=== PATIENT | male | born 1990 | race Caucasian/White ===

== ENCOUNTER 2021-01-02 13:44 | Emergency (ER) | payer MEDICAID ==
[2021-01-02 14:10] LABS: BASOPHILS # (AUTO) 0.1 10^3/uL (0.0-0.1); BASOPHILS % (AUTO) 0.6 %; EOSINOPHILS # (AUTO) 0.1 10^3/uL (0.0-0.7); HCT - HEMATOCRIT 48.8 % (42.0-52.0); HGB - HEMOGLOBIN 16.3 g/dL (14.0-18.0); LYMPHOCYTES # (AUTO) 2.4 10^3/uL (1.5-3.5); LYMPHOCYTES % (AUTO) 31.6 %; MEAN CORPUSCULAR HEMOGLOBIN 30.1 pg (27.0-31.0); MEAN CORPUSCULAR HGB CONC 33.4 g/dL (32.0-36.0); MEAN CORPUSCULAR VOLUME 90.2 fL (80.0-94.0); MEAN PLATELET VOLUME 10.8 fL (7.4-11.4); MONOCYTES # (AUTO) 0.6 10^3/uL (0.0-1.0); MONOCYTES % (AUTO) 7.1 %; NEUTROPHILS # (AUTO) 4.6 10^3/uL (1.5-6.6); NEUTROPHILS % (AUTO) 59.6 %; PLT - PLATELET COUNT 267 10^3/uL (130-450); RED BLOOD COUNT 5.41 10^6/uL (4.70-6.10); RED CELL DISTRIBUTION WIDTH 12.5 % (12.0-15.0); WHITE BLOOD COUNT 7.7 x10^3/uL (4.8-10.8)
[2021-01-02 14:23] LABS: ALBUMIN 4.8 g/dL (3.2-5.5); ALBUMIN/GLOBULIN RATIO 1.4 (1.0-2.2); BILIRUBIN,TOTAL 0.8 mg/dL (0.2-1.0); CREATININE 1.1 mg/dL (0.6-1.2); POTASSIUM 3.5 mmol/L (3.5-5.0); TOTAL PROTEIN 8.2 g/dL (6.7-8.2)
[2021-01-02] MEDS ORDERED: ONDANSETRON 4 MG/2 ML VIAL IVP STA (14:31)
[2021-01-02] MEDS ORDERED: SODIUM CHLORIDE 0.9% 1,000 ML IV STA (14:31)
[2021-01-02] MEDS ORDERED: FAMOTIDINE 20 MG/2 ML VIAL IVP STA (14:32)
[2021-01-02 14:48] LABS: BILIRUBIN,URINE NEGATIVE (NEGATIVE); GLUCOSE, URINE (UA) NEGATIVE (NEGATIVE); KETONES,URINE (UA) TRACE mg/dL (NEGATIVE); LEUKOCYTE ESTERASE, URINE NEGATIVE (NEGATIVE); NITRITE,URINE NEGATIVE (NEGATIVE); OCCULT BLOOD,URINE NEGATIVE (NEGATIVE); PROTEIN,URINE NEGATIVE (NEGATIVE); UROBILINOGEN,URINE 0.2 (NORMAL) E.U./dL (NORMAL)
[2021-01-02 14:51] LABS: CLARITY,URINE CLEAR (CLEAR)
--- NOTE | 2021-01-02 16:54 | ED Physician Documentation ---
History of Present Illness - Stated complaint Stated Complaint: N/V - Chief complaint Chief Complaint: Abd Pain - History obtained from History obtained from: Patient - Additonal information Additional information: 30-year-old man with past medical history of gastroesophageal reflux disease on Prevacid presents with nausea, vomiting, and epigastric pain starting today with bloody streaks. Patient states that his pain started gradually, burning quality, radiated upward from the epigastrium and was associated with acid taste in his throat. Intermittently streaked with blood, dark streaks, and foamy white material. small volume vomitus. He denies fevers, diarrhea, back pain. Primary doctor is Salvador Cunningham in [place]. Review of Systems Ten Systems: 10 systems reviewed and negative Constitutional: denies: Fever GI: reports: Abdominal Pain, Nausea, Vomiting. denies: Diarrhea PD PAST MEDICAL HISTORY - Present Medications Home Medications: Ambulatory Orders Medication Instructions Recorded Confirmed Lansoprazole [Prevacid] 30 mg PO DAILY 01/02/21 01/02/21 Loratadine [Claritin] 10 mg PO DAILY 01/02/21 01/02/21 Ondansetron Odt [Zofran Odt] 4 mg TL Q6H PRN #10 tablet 01/02/21 - Allergies Allergies/Adverse Reactions: Allergies Allergy/AdvReac Type Severity Reaction Status Date / Time methylphenidate AdvReac Anxiety Verified 01/02/21 13:50 [From Ritalin] PD ED PE NORMAL - Vitals Vital signs reviewed: Yes - General General: Alert and oriented X 3, No acute distress, Well developed/nourished - HEENT HEENT: Atraumatic, PERRL, EOMI - Neck Neck: Supple, no meningeal sign - Cardiac Cardiac: RRR - Respiratory Respiratory: No respiratory distress, Clear bilaterally - Abdomen Abdomen: Non tender, Other (Discomfort to palpation in epigastrium) - Back Back: No CVA TTP - Neuro Neuro: Alert and oriented X 3 - Psych Psych: Normal mood, Normal affect Results - Vitals Vitals: Vital Signs - 24 hr 01/02/21 01/02/21 01/02/21 13:52 15:36 17:01 Temperature 37.0 C Heart Rate 60 60 78 Respiratory 19 16 19 Rate Blood Pressure 141/89 H 108/58 L 119/60 O2 Saturation 100 99 100 Oxygen O2 Source Room air - Labs Labs: Laboratory Tests 01/02/21 01/02/21 01/02/21 14:00 14:05 14:05 WBC 7.7 RBC 5.41 Hgb 16.3 Hct 48.8 MCV 90.2 MCH 30.1 MCHC 33.4 RDW 12.5 Plt Count 267 MPV 10.8 Neut # (Auto) 4.6 Lymph # (Auto) 2.4 Cedar # (Auto) 0.6 Eos # (Auto) 0.1 Baso # (Auto) 0.1 Absolute Nucleated RBC 0.00 Nucleated RBC % 0.0 Sodium 141 Potassium 3.5 Chloride 102 Carbon Dioxide 25 Anion Gap 14.0 H BUN 19 Creatinine 1.1 Estimated GFR (MDRD) 79 L Glucose 95 Calcium 10.0 Total Bilirubin 0.8 AST 24 ALT 21 Alkaline Phosphatase 76 Total Protein 8.2 Albumin 4.8 Globulin 3.4 Albumin/Globulin Ratio 1.4 Lipase 48 Urine Color YELLOW Urine Clarity CLEAR Urine pH 6.0 Ur Specific Oxly >=1.030 H Urine Protein NEGATIVE Urine Glucose (UA) NEGATIVE Urine Ketones TRACE Urine Occult Blood NEGATIVE Urine Nitrite NEGATIVE Urine Bilirubin NEGATIVE Urine Urobilinogen 0.2 (NORMAL) Ur Leukocyte Esterase NEGATIVE Ur Microscopic Review NOT INDICATED Urine Culture Comments NOT INDICATED PD MEDICAL DECISION MAKING - ED course ED course: 30-year-old man presents with gastritis versus peptic ulcer disease. Lab work noncontributory. Patient will follow up with his primary doctor for referral to gastroenterology.Strict return precautions given. Departure - Departure Disposition: Home, Self Care Clinical Impression: Nausea and vomiting, GERD (gastroesophageal reflux disease) Condition: Good Instructions: Diet Clear Liquid Dc Follow-Up: Salvador Cunningham [Primary Care Provider] - Prescriptions: Ondansetron Odt [Zofran Odt] 4 mg TL Q6H PRN #10 tablet PRN Reason: Nausea / Vomiting Comments: You are seen in the emergency department for stomach issues probably related to gastritis versus peptic ulcer disease. You need to have a repeat endoscopy nonurgently. You should follow-up with your primary Dr. Cunningham for referral. You were given Zofran, Pepcid, and IV fluids in the emergency room with improvement in your symptoms. Your labwork looked normal. Please return to the emergency department if you develop any new or worsening conditions or have other concerns. Discharge Date/Time: 01/02/21 17:01
[2021-01-02 17:02] VITALS: BP 119/60
== END 2021-01-02 17:01 | disposition home or self-care (01) ==
LOC: ED 13:44
DX: K21.9 Gastro-esophageal reflux disease without esophagitis (principal); R11.2 Nausea with vomiting, unspecified
CPT/HCPCS: 36415; 80053; 81001; 81003; 83690; 85025; 87086; 96361; 96374; 96375; 99284